=== PATIENT | female | born 1975 | race Caucasian/White ===

== ENCOUNTER 2020-11-25 12:22 | Emergency (ER) | payer OTHER, SELFPAY ==
[2020-11-25 12:25] VITALS: BP 128/95; PULSE 93; RESP 20; TEMP 36.4; O2SAT 99; BMI 28.8
--- NOTE | 2020-11-25 12:39 | HMH.EDUTC ---
[facility] [place] Disposition Clinical Impression: Otitis externa Qualifiers: Otitis externa type: other infective Chronicity: acute Laterality: right Qualified Code(s): H60.391 - Other infective otitis externa, right ear Disposition: Home, Self-Care Condition on Discharge: Good Instructions: Otitis Externa, DI for Otitis Externa Additional Instructions: follow up with pcp if no improvement return or call dr gordon on friday Prescriptions: Neomycin/Polymyxin B/Hydrocort [Sxmyzest-Srubkkemq-Ez Ear Susp] 10 ml OT BID 10 Days #1 bottle Prescription Printed Referrals: Keyonna Kelly [Primary Care Provider] - Saurabh Gordon MD [Staff Physician] - Time of Disposition: 12:50 Medical Decision Making - Sree Inquiry Pt receiving controlled substance: No Vital Signs: 11/25/20 12:25 Temperature 97.6 F Temperature Source Temporal Artery Scan Pulse Rate [Right Brachial] 93 H Respiratory Rate 20 Blood Pressure [Right Arm] 128/95 H Blood Pressure Mean [Right Arm] 106 Blood Pressure Source [Right Arm] Automatic Cuff Blood Pressure Position [Right Arm] Sitting 02 Sat by Pulse Oximetry 99 Oxygen Delivery Method Room Air [facility] [place] HPI - General Chief complaint: Urgent Treatment Center Stated complaint: ear pain Time Seen by Provider: 11/25/20 12:39 Mode of Arrival: Ambulatory Source of Information: Patient Limitations: No Limitations Description of Symptoms (Recalled from Triage Doc. by RN): PATIENT C/O RIGHT EAR PAIN SINCE FRIDAY. STATES SHE FEELS LIKE HER EAR IS FULL HEENT Symptoms (Recalled from RN notes): Yes Resp Symptoms (Recalled from RN notes): No Skin Symptoms (Recalled from RN notes): No MS Symptoms (Recalled from RN notes): No Functional Status (Recalled from RN notes): WNL - History of Present Illness Provider Complaint: 45 yr old femalepresents for pain in rt ear. pt states she put prox in ear and if felt better but now feels she can not hear anything in ear and pain with movement. - Related Data Home Medications Medication Instructions Recorded Confirmed Duloxetine HCl [Cymbalta] 60 mg PO DAILY 11/25/20 11/25/20 Metoprolol Succinate [Metoprolol 50 mg PO DAILY 11/25/20 11/25/20 Succinate 50mg Tablet*] Previous Rx's Medication Instructions Recorded Neomycin/Polymyxin B/Hydrocort 10 ml OT BID 10 Days #1 bottle 11/25/20 [Spiyehqc-Etjxtsyqm-Gg Ear Susp] Allergies Allergy/AdvReac Type Severity Reaction Status Date / Time No Known Allergies Allergy Verified 11/25/20 12:38 - Worker's Comp Is this a Worker's Comp case?: No H History - Hepatitis A Screen Drug use history?: No High risk sexual behaviors?: No History of sexually transmitted infection?: No Currently employed?: No Childcare worker?: No Do you have indoor plumbing?: Yes Do you have electricity?: Yes Attestation statement:: This patient has been screened for Hepatitis A risk factors. I have reviewed the patient's past medical history: Yes Medical History: Reports:: Cancer - Social History Alcohol Intake: never Occupational Status: other ROS Obtained: Yes Systems reviewed as appropriate & no additional complaints - Constitutional Constitutional: Reports system reviewed and no additional complaints, except as docu, Denies fever(s) - Eyes Eyes: Reports system reviewed and no additional complaints, except as docu, Denies blurry vision - ENT Ears, Nose, Mouth, and Throat: Reports system reviewed and no additional complaints, except as docu, Reports otalgia, Reports hearing loss - Cardiovascular Cardiovascular: Reports system reviewed and no additional complaints, except as docu, Denies chest pain - Respiratory Respiratory: Reports system reviewed and no additional complaints, except as docu, Denies chest congestion - Gastrointestinal Gastrointestingal: Reports: system reviewed and no additional complaints, except as docu. Denies: nausea, vomiting - Genitourinary Female Genitourinary: Reports system
[2020-11-25 12:52] VITALS: BP 128/95; PULSE 93; RESP 20; TEMP 36.4; O2SAT 99
== END 2020-11-25 12:55 | disposition home or self-care (01) ==
PROVIDERS: Emergency Provider Nurse Practitioner Family; PCP Family Medicine
DX: H60.391 Other infective otitis externa, right ear (principal)
CPT/HCPCS: 99202; G0463